=== PATIENT | female | born 1960 | race Caucasian/White ===

== ENCOUNTER 2017-04-22 07:57 | Observation (INO) ==
[2017-04-22] MEDS ORDERED: 0.9 % Sodium Chloride 1,000 ML IVC ONE (09:16)
[2017-04-22] MEDS ORDERED: Ondansetron 4 MG/2 ML VIAL IVP ONE (09:16)
[2017-04-22] MEDS ORDERED: Pantoprazole 40 MG VIAL IVP ONE (09:16)
[2017-04-22] MEDS ORDERED: Ketorolac 15 MG/ML VIAL IVP ONE (09:17)
[2017-04-22 09:31] LABS: Basophils % 0.3 %; Eosinophils # 0.1 K/mcL (0.0-0.6); Eosinophils % 0.9 %; Hematocrit 44.4 % (35.3-44.9); Hemoglobin 14.5 g/dL (11.5-15.4); Immature Granulocytes % 0.3 % (0-4); Lymphocytes # 1.4 K/mcL (0.6-4.6); Lymphocytes % 11.6 %; Mean Corpuscular HGB Conc 32.7 g/dL (31.6-35.5); Mean Corpuscular Hemoglobin 28.7 pg (28.0-33.3); Mean Corpuscular Volume 87.9 fL (83.0-100.0); Mean Platelet Volume 9.5 fL (9.4-12.4); Monocytes # 0.5 K/mcL (0.0-1.3); Monocytes % 4.4 %; Neutrophils # 9.6 K/mcL (1.6-8.9); Platelet Count 286 K/mcL (140-400); Red Blood Count 5.05 M/mcL (3.82-4.97); Red Cell Distribution Width 13.3 % (11.5-14.5); Segmented Neutrophils % 82.5 %
[2017-04-22 09:32] LABS: Bilirubin,Urine Negative (Negative); Blood,Urine Negative (Negative); Clarity,Urine Clear (Clear); Color,Urine Yellow (Yellow); Glucose,Urine (UA) Normal (Normal); Ketones,Urine Negative (Negative); Leukocyte Esterase,Urine Negative (Negative); Nitrite,Urine Negative (Negative); PH,Urine 8.5 pH Units (5.0-8.0); Protein,Urine Negative (Neg-Trace); Specific Gravity,Urine 1.012 (1.010-1.025); Urobilinogen,Urine Normal (Normal)
[2017-04-22 09:40] LABS: Alanine Aminotransferase 11 Units/L (7-52); Albumin 3.7 g/dL (3.5-5.7); Albumin/Globulin Ratio 1.2 (1.1-2.2); Alkaline Phosphatase 68 Units/L (34-104); Aspartate Amino Transferase 12 Units/L (13-39); BUN/Creatinine Ratio 17 (6-26); Bilirubin,Direct 0.1 mg/dL (0.0-0.2); Bilirubin,Indirect 0.5 mg/dL (0.0-1.2); Bilirubin,Total 0.6 mg/dL (0.3-1.0); Blood Urea Nitrogen 11 mg/dL (6-20); Calcium 8.5 mg/dL (8.6-10.3); Carbon Dioxide 22 mEq/L (23-29); Chloride 109 mEq/L (98-107); Glucose 97 mg/dL (70-105); Lipase 20 Units/L (11-82); Osmolality,Calculated 285 (280-300); Potassium 3.5 mEq/L (3.5-5.1); Sodium 138 mEq/L (136-145); Total Protein 6.7 g/dL (6.4-8.9); eGFR For African Americans > 60 (> 60); eGFR For Non-African Americans > 60 (> 60)
--- NOTE | 2017-04-22 12:51 | Emergency Department Note ---
Disposition Clinical Impression: Abdominal pain Qualifiers: Abdominal location: generalized Qualified Code(s): R10.84 - Generalized abdominal pain Acute appendicitis Qualifiers: Acute appendicitis type: unspecified acute appendicitis type Qualified Code(s) : K35.80 - Unspecified acute appendicitis Disposition: Admitted As Inpatient Condition: Good Referrals: Balaji Strickland MD [Primary Care Provider] - Time of Disposition: 13:03 Abdominal Pain HPI - General Chief Complaint: ED Abdominal Pain Stated Complaint: ABD Pain Time Seen by Provider: 04/22/17 08:02 Source: patient Mode of arrival: ambulatory Limitations: no limitations Nursing Notes Reviewed: Yes Vital Signs Reviewed: Yes - History of Present Illness HPI Narrative: Patient presents to emergency room complaining of abdominal pain. Patient said the symptoms on and off for the last 12+ hours. At about intra-abdominal pathology as well as nausea and vomiting. She has chronic fibromyalgia and has not been able to take her bfyl-kaf-yormkum pain medication as well as her prescribed pain medication. Patient denies any chest pain shortness of breath headache vision changes diarrhea at this point. She has had epigastric discomfort and vomiting. Patient denies any fevers or chills. No recent trauma or injuries. She has never had surgery on her abdomen except for C- section Onset (ago): hour(s) Consistency: constant Location: diffuse Pain Severity: mild Pain Scale: 4 Quality: sharp Radiation: epigastric Migration to: no migration Improves with: nothing Worsens with: nothing Associated symptoms: Reports: nausea, vomiting. Denies: fever, chills, constipation Treatments prior to arrival: none - Related Data Home Medications Medication Instructions Recorded Confirmed OxyCODONE/APAP 5/325 [Percocet 1 each PO ONCE 05/13/15 05/13/15 5/325 MG] diazePAM [Valium] 5 mg PO ONCE 05/13/15 05/13/15 Previous Rx's Medication Instructions Recorded Ondansetron ODT [Zofran ODT] 4 mg SL Q6HR PRN #16 tab.rapdis 05/13/15 Ondansetron ODT [Zofran ODT] 4 mg SL Q6HR PRN #15 tab.rapdis 09/02/15 Amoxicillin/Clavulanate [Augmentin] 875 mg PO BIDWM #20 tablet 07/05/16 Allergies Allergy/AdvReac Type Severity Reaction Status Date / Time famotidine [From Pepcid] Allergy Confusion Verified 04/22/17 08:02 ivp dye Allergy Severe Anaphylaxis Uncoded 07/05/16 11:04 All systems ED: reviewed and negative except as stated. Review of Systems: As Per HPI Constitutional: Denies: fever, chills, weakness Cardiovascular: Denies: chest pain, palpitations, dyspnea on exertion Respiratory: Denies: cough, dyspnea, wheezes Gastrointestinal: Reports: abdominal pain, nausea, vomiting. Denies: diarrhea, constipation Genitourinary: Denies: urgency, dysuria, frequency Musculoskeletal: Denies: back pain, neck pain Integumentary: Denies: rash Neurological: Denies: headache Endocrine: Denies: fatigue Abdominal Pain PMH - Past Medical History Medical history: Reports: fibromyalgia Female Surgical History: Reports: other Psychiatric history: Reports: anxiety, panic disorder - Social History Smoking status: Never smoker Alcohol use: Reports: none Drug use: Reports: none Physical Exam - General Limitations: no limitations General appearance: alert, in no apparent distress - Head Head exam: atraumatic, normocephalic, normal inspection - ENT ENT exam: normal exam, normal oropharynx, mucous membranes moist - Neck Neck exam: Present: normal inspection, full ROM, trachea midline - Chest Chest inspection: Present: normal inspection, symmetric chest wall rise - Respiratory Respiratory exam: Present: normal lung sounds bilaterally. Absent: respiratory distress - Cardiovascular Cardiovascular exam: Present: regular rate, normal rhythm, normal heart sounds - Abdominal Exam Abdominal exam: Present: soft, tenderness, normal bowel sounds. Absent: distention, guarding, rebound, rigidity - Extremities Exam Extremities exam: Present: normal inspection, full ROM, normal capillary refill. Absent: tenderness - Back Exam Back exam: Present: normal inspection, full ROM. Absent: tenderness - Neurological Exam Neurological exam: Present: alert, oriented X3, CN II-XII intact, normal gait - Skin Skin exam: Present: warm, dry, intact, normal color Course Course Narrative: Patient seen and examined the time of arrival. See history of present illness. A 6-year-old female presents today with abdominal pain. She also has complaint of nausea and vomiting. She denies any fevers or chills chest pain shortness of breath headache or vision change. No diarrhea. Patient has not been ill and does not have any sick contacts. She does have a history of fibromyalgia. Denies any cardiac or pulmonary related illness. Lungs are clear heart is regular abdomen is soft nontender nondistended. She does not have any point tenderness noted on exam. Subjectively, every time the patient on her abdomen or anywhere across her body the patient does complain of pain. She says this is a chronic issue for her. Abdominal examination does not have any acute findings are concerning for intra-abdominal pathology including pancreatitis, gallbladder disease, appendicitis at this point. CT imaging will be added on secondary to the patient's remote history as well as complaint of uncontrolled nausea and significant pain. Pain medication nausea medication will be given as needed. Screening laboratory workup including CBC chemistry and urinalysis will be established. Patient will have further detailed evaluation. Disposition be determined. Otherwise no other acute issues noted on initial evaluation. Vital signs are stable. - Reevaluation(s) Reevaluation #1: Patient found to have appendicitis based on CT imaging of the abdomen. Consultation placed to the operative physician Dr. andrade. We reviewed the presentation symptoms as well as the abnormal physical exam at this point. He understands and appreciates the concern. Patient was evaluated at the bedside in the emergency room by the surgeon. They are going to take her to the operative suite at this time. The last time that she ate was last night prior to going to bed. She has not had anything by mouth today. Patient is otherwise clinically stable. No other acute concerns or issues noted at this point. Surgical intervention will be established and completed here today. Time: 13:02 Vital Signs Temperature 97.7 F 04/22/17 07:59 Pulse Rate 91 04/22/17 07:59 Respiratory Rate 18 04/22/17 07:59 Blood Pressure 146/103 04/22/17 07:59 O2 Sat by Pulse Oximetry 98 04/22/17 07:59 Temperature 97.7 F 04/22/17 07:59 Pulse Rate 87 04/22/17 10:49 Respiratory Rate 18 04/22/17 07:59 Blood Pressure 131/97 04/22/17 10:49 O2 Sat by Pulse Oximetry 96 04/22/17 10:49 Oxygen Delivery Oxygen Delivery Room Air Abdominal Pain - MDM Narrative Medical decision making narrative: Abdominal pain, appendicitis - Medical Records Medical records reviewed: Yes I reviewed the patient's medical records. - Lab Data Lab results reviewed: Yes I reviewed the patient's lab results. Result diagrams: 04/22/17 08:36 04/22/17 08:36 Lab Results 04/22/17 04/22/17 04/22/17 Range/Units 08:20 08:36 08:36 WBC 11.6 H (4.3-11.1) K/mcL RBC 5.05 H (3.82-4.97) M/mcL Hgb 14.5 (11.5-15.4) g/dL Hct 44.4 (35.3-44.9) % MCV 87.9 (83.0-100.0) fL MCH 28.7 (28.0-33.3) pg MCHC 32.7 (31.6-35.5) g/dL RDW 13.3 (11.5-14.5) % Plt Count 286 (140-400) K/mcL MPV 9.5 (9.4-12.4) fL Immature Gran % 0.3 (0-4) % Seg Neutrophils % 82.5 % Lymphocytes % 11.6 % Monocytes % 4.4 % Eosinophils % 0.9 % Basophils % 0.3 % Neutrophils # 9.6 H (1.6-8.9) K/mcL Lymphocytes # 1.4 (0.6-4.6) K/mcL Monocytes # 0.5 (0.0-1.3) K/mcL Eosinophils # 0.1 (0.0-0.6) K/mcL Basophils # 0.0 (0.0-0.2) K/mcL Sodium 138 (136-145) mEq/L Potassium 3.5 (3.5-5.1) mEq/L Chloride 109 H (98-107) mEq/L Carbon Dioxide 22 L (23-29) mEq/L BUN 11 (6-20) mg/dL Creatinine 0.66 (0.60-1.20) mg/dL Est GFR ( Amer) > 60 (> 60) Est GFR (Non-Af Amer) > 60 (> 60) BUN/Creatinine Ratio 17 (6-26) Glucose 97 (70-105) mg/dL Calculated Osmolality 285 (280-300) Lactic Acid (0.5-2.2) mmol/L Calcium 8.5 L (8.6-10.3) mg/dL Total Bilirubin 0.6 (0.3-1.0) mg/dL Direct Bilirubin 0.1 (0.0-0.2) mg/dL Indirect Bilirubin 0.5 (0.0-1.2) mg/dL AST 12 L (13-39) Units/L ALT 11 (7-52) Units/L Alkaline Phosphatase 68 (34-104) Units/L Troponin I (< 0.04) ng/mL Serum Total Protein 6.7 (6.4-8.9) g/dL Albumin 3.7 (3.5-5.7) g/dL Globulin 3.0 (2.4-3.5) g/dL Albumin/Globulin Ratio 1.2 (1.1-2.2) Lipase 20 (11-82) Units/L Urine Color Yellow (Yellow) Urine Clarity Clear (Clear) Urine pH 8.5 H (5.0-8.0) pH Units Ur Specific [place] 1.012 (1.010-1.025) Urine Protein Negative (Neg-Trace) mg/dL Urine Glucose (UA) Normal (Normal) mg/dL Urine Ketones Negative (Negative) mg/dL Urine Blood Negative (Negative) Urine Nitrite Negative (Negative) Urine Bilirubin Negative (Negative) Urine Urobilinogen Normal (Normal) mg/dL Ur Leukocyte Esterase Negative (Negative) Ur Culture Indicated? NO (NO) 04/22/17 04/22/17 Range/Units 08:36 10:32 WBC (4.3-11.1) K/mcL RBC (3.82-4.97) M/mcL Hgb (11.5-15.4) g/dL Hct (35.3-44.9) % MCV (83.0-100.0) fL MCH (28.0-33.3) pg MCHC (31.6-35.5) g/dL RDW (11.5-14.5) % Plt Count (140-400) K/mcL MPV (9.4-12.4) fL Immature Gran % (0-4) % Seg Neutrophils % % Lymphocytes % % Monocytes % % Eosinophils % % Basophils % % Neutrophils # (1.6-8.9) K/mcL Lymphocytes # (0.6-4.6) K/mcL Monocytes # (0.0-1.3) K/mcL Eosinophils # (0.0-0.6) K/mcL Basophils # (0.0-0.2) K/mcL Sodium (136-145) mEq/L Potassium (3.5-5.1) mEq/L Chloride (98-107) mEq/L Carbon Dioxide (23-29) mEq/L BUN (6-20) mg/dL Creatinine (0.60-1.20) mg/dL Est GFR ( Amer) (> 60) Est GFR (Non-Af Amer) (> 60) BUN/Creatinine Ratio (6-26) Glucose (70-105) mg/dL Calculated Osmolality (280-300) Lactic Acid 0.8 (0.5-2.2) mmol/L Calcium (8.6-10.3) mg/dL Total Bilirubin (0.3-1.0) mg/dL Direct Bilirubin (0.0-0.2) mg/dL Indirect Bilirubin (0.0-1.2) mg/dL AST (13-39) Units/L ALT (7-52) Units/L Alkaline Phosphatase (34-104) Units/L Troponin I < 0.03 (< 0.04) ng/mL Serum Total Protein (6.4-8.9) g/dL Albumin (3.5-5.7) g/dL Globulin (2.4-3.5) g/dL Albumin/Globulin Ratio (1.1-2.2) Lipase (11-82) Units/L Urine Color (Yellow) Urine Clarity (Clear) Urine pH (5.0-8.0) pH Units Ur Specific [place] (1.010-1.025) Urine Protein (Neg-Trace) mg/dL Urine Glucose (UA) (Normal) mg/dL Urine Ketones (Negative) mg/dL Urine Blood (Negative) Urine Nitrite (Negative) Urine Bilirubin (Negative) Urine Urobilinogen (Normal) mg/dL Ur Leukocyte Esterase (Negative) Ur Culture Indicated? (NO) - Radiology Data Radiology results reviewed: Yes I reviewed the patient's radiology results. CT imaging of the abdomen is positive for acute appendicitis. Otherwise no other acute remarkable issues
[2017-04-22] MEDS ORDERED: *HR* Propofol 200 MG/20 ML VIAL IVP ONE (12:57)
[2017-04-22] MEDS ORDERED: *HR* Midazolam HCl 2 MG/2 ML VIAL ONE (12:57)
[2017-04-22] MEDS ORDERED: *HR* FentaNYL (PF) 100 MCG/2 ML VIAL ONE (12:57)
--- NOTE | 2017-04-22 12:57 | General Surg History&Physical ---
Date of Encounter: 04/22/17 Time of Encounter: 12:30 History of Present Illness Chief complaint: Acute appendicitis HPI: Ms. Herbert is a 56 year old female With a several day history of abdominal pain. This morning the pain was much more severe, central, and generalized. She denies nausea or vomiting. She denies episodes of diarrhea. She does have intermittent episodic constipation related to chronic narcotic use. She sought evaluation in the emergency room due to the severity of pain. CAT scan demonstrates acute appendicitis. I personally reviewed the CAT scan films. Findings are consistent with acute appendicitis. The patient does not have localized abdominal pain. The patient does not have pain with motion. Past Med Surg Social Fam HX - Past Medical History Medical history: fibromyalgia Psychiatric history: anxiety, panic disorder - Past Surgical History Surgical History: other (right lung lobectomy 2013) - Social History Smoking Status: Never smoker Smokeless Tobacco Status: No Alcohol use: none Drug use: none Medications and Allergies Oxycodone HCl/Acetaminophen [Percocet 10-325 mg Tablet] 1 tab PO QID 04/22/17 [ History] 3 Allergy/AdvReac Type Severity Reaction Status Date / Time famotidine [From Pepcid] Allergy Confusion Verified 04/22/17 08:02 ivp dye Allergy Severe Anaphylaxis Uncoded 07/05/16 11:04 Review of Systems All systems PM: A 10-system review of systems was performed and is negative for pertinent findings except as documented above in the HPI. General Surgery Exam Initial Vital Signs Temp Pulse Resp BP Pulse Ox 97.7 F 91 18 146/103 98 04/22/17 07:59 04/22/17 07:59 04/22/17 07:59 04/22/17 07:59 04/22/17 07:59 - General physical appearance well developed, well nourished, no distress - Respiratory normal expansion, normal respiratory effort, clear to percussion, clear to auscultation - Cardiovascular Cardiovascular exam: Present: RRR, no murmurs/rubs/gallops - Abdomen Abdomen general surgery: Present: tender Abdominal Tenderness: Present: diffusely Hernia: Present: none - Neurologic Present: CN 2-12 grossly intact, normal coordination, normal sensation - Psychiatric Psychiatric general surgery: Present: appropriate, oriented to person, oriented to place, oriented to time, speech is normal, memory intact Results - Labs 04/22/17 08:36 04/22/17 08:36 Abnormal lab results WBC 11.6 K/mcL (4.3-11.1) H 04/22/17 08:36 RBC 5.05 M/mcL (3.82-4.97) H 04/22/17 08:36 Neutrophils # 9.6 K/mcL (1.6-8.9) H 04/22/17 08:36 Chloride 109 mEq/L (98-107) H 04/22/17 08:36 Carbon Dioxide 22 mEq/L (23-29) L 04/22/17 08:36 Calcium 8.5 mg/dL (8.6-10.3) L 04/22/17 08:36 AST 12 Units/L (13-39) L 04/22/17 08:36 Urine pH 8.5 pH Units (5.0-8.0) H 04/22/17 08:20 Diabetes panel 04/22/17 Range/Units 08:36 Sodium 138 (136-145) mEq/L Potassium 3.5 (3.5-5.1) mEq/L Chloride 109 H (98-107) mEq/L Carbon Dioxide 22 L (23-29) mEq/L BUN 11 (6-20) mg/dL Creatinine 0.66 (0.60-1.20) mg/dL Glucose 97 (70-105) mg/dL Calcium 8.5 L (8.6-10.3) mg/dL AST 12 L (13-39) Units/L ALT 11 (7-52) Units/L Alkaline Phosphatase 68 (34-104) Units/L Albumin 3.7 (3.5-5.7) g/dL Calcium panel 04/22/17 Range/Units 08:36 Calcium 8.5 L (8.6-10.3) mg/dL Albumin 3.7 (3.5-5.7) g/dL Pituitary panel 04/22/17 Range/Units 08:36 Sodium 138 (136-145) mEq/L Potassium 3.5 (3.5-5.1) mEq/L Chloride 109 H (98-107) mEq/L Carbon Dioxide 22 L (23-29) mEq/L BUN 11 (6-20) mg/dL Creatinine 0.66 (0.60-1.20) mg/dL Glucose 97 (70-105) mg/dL Calcium 8.5 L (8.6-10.3) mg/dL Adrenal panel 04/22/17 Range/Units 08:36 Sodium 138 (136-145) mEq/L Potassium 3.5 (3.5-5.1) mEq/L Chloride 109 H (98-107) mEq/L Carbon Dioxide 22 L (23-29) mEq/L BUN 11 (6-20) mg/dL Creatinine 0.66 (0.60-1.20) mg/dL Glucose 97 (70-105) mg/dL Calcium 8.5 L (8.6-10.3) mg/dL Total Bilirubin 0.6 (0.3-1.0) mg/dL AST 12 L (13-39) Units/L ALT 11 (7-52) Units/L Alkaline Phosphatase 68 (34-104) Units/L Albumin 3.7 (3.5-5.7) g/dL All other labs normal. - Imaging CT scan - abdomen: image reviewed (I personally reviewed the CAT scan of the abdomen. Findings are consistent with acute appendicitis.)
[2017-04-22] MEDS ORDERED: CefOXitin 1,000 MG VIAL ONE (12:59)
[2017-04-22] MEDS ORDERED: *HR* Succinylcholine 200 MG/10 ML VIAL IVP ONE (13:00)
[2017-04-22] MEDS ORDERED: *HR* Rocuronium Bromide 50 MG/5 ML VIAL ONE (13:00)
[2017-04-22] MEDS ORDERED: Ondansetron 4 MG/2 ML VIAL ONE (13:00)
[2017-04-22] MEDS ORDERED: Dexamethasone 4 MG/ML VIAL ONE (13:00)
[2017-04-22] MEDS ORDERED: Lidocaine -MPF 2% 2 ML VIAL ONE (13:00)
--- NOTE | 2017-04-22 13:18 | Anesthesia Evaluation PreOp ---
Date of Encounter: 04/22/17 Time of Encounter: 13:12 - Past History Planned Operation: lap appy Cardiac History: Denies any Significant Hx Pulmonary History: Denies Any Significant HX RESIDENT INTERN History: Denies Any Significant HX Other Medical History: Other (fibromyalgia and panic disorder) Anesthesia History: No Prior Anesthetic Complications, Past Anesthesia ( thoracotomy/mediastinoscopy - no cancer) Alcohol Use: none Drug use: none Medications and Allergies Oxycodone HCl/Acetaminophen [Percocet 10-325 mg Tablet] 1 tab PO QID 04/22/17 [ History] 3 Allergy/AdvReac Type Severity Reaction Status Date / Time famotidine [From Pepcid] Allergy Confusion Verified 04/22/17 08:02 ivp dye Allergy Severe Anaphylaxis Uncoded 07/05/16 11:04 - Meds/Allergy Pre-op Review Medications Reviewed: Yes Allergies Reviewed: Yes Beta Blockers on Current Med List: No Anesthesia Results - Labs 04/22/17 08:36 04/22/17 08:36 Anesthesia Exam Selected Entries 04/22/17 12:54 Pulse Rate 97 Respiratory Rate 15 Blood Pressure 137/99 O2 Sat by Pulse Oximetry 97 Weight: 75kg NPO (# of Hours): 8 - HEENT Pupil (Motor): EOMI Mallampati: II Teeth: Poor dentition Oral Opening: Greater than 3 - RESIDENT INTERN LOC: Oriented RESIDENT INTERN Motor: Normal RUE, Normal LUE, Normal RLE, Normal LLE, Normal Face RESIDENT INTERN Sensory: Normal: RUE, LUE, RLE, LLE, Face - Cardiac Rhythm: Regular Murmur: None - Pulmonary Breath Sounds: bilateral Clear Respiratory Effort: Symmetrical Anesthesia Assess/Plan ASA Score: 2 Modified [place] Scale for Level of Consciousness: Cooperative, oriented, and tranquil Anesthetic Plan: General Monitoring Plan: Standard Monitors Recovery Plan: PACU (agrees to GA)
[2017-04-22] MEDS ORDERED: *HR* Labetalol 20 MG/4 ML SYRINGE IVP PRN (14:07)
[2017-04-22] MEDS ORDERED: *HR* OxyCODONE Immed Rel 5 MG TABLET PO PRN (14:07)
[2017-04-22] MEDS ORDERED: CeFAZolin Syringe 2,000MG/20 ML SYR IVPB ONE ×2 (14:09→15:57)
[2017-04-22] MEDS ORDERED: Neostigmine Methylsulfate 3 MG/3 ML SYRINGE ONE (14:27)
--- NOTE | 2017-04-22 14:44 | Operative Note ---
Date of procedure: 04/22/17 Pre-op diagnosis: Acute appendicitis Post-op diagnosis: same Procedure: Laparoscopic appendectomy Anesthesia: JAMISON Surgeon: Yaya Guardado Was there an data entry assistant present: No Estimated blood loss (cc): 25 Specimen: appendix Condition: stable Disposition: PACU Procedure in Detail: After informed consent patient was taken to the major operative suite placed in supine position and given adequate general anesthetic. Abdomen is prepped and draped in sterile fashion utilizing ChloraPrep standard draping techniques. Timeout was taken. I made a vertical midline incision below the umbilicus and dissected down to level of fascia. 2 traction stitches were placed. The abdomen was entered visually. I placed a Mcgovern trocar. I placed a 5 mm port and a 12 mm port. The 5 mm ports in the suprapubic area 12 mm port right upper quadrant. The appendix was visualized and acute inflamed. The tip was necrotic and retrocecal. I mobilized the lateral peritoneal attachments to the cecum and appendix. The base the appendix was divided with a gastrointestinal load. I divided the mesial appendix with a vascular load. This allowed me to fully mobilize the tip of the appendix which was necrotic. There was no spillage of stool and there was no possible. The tip the appendix was removed from the periappendiceal tissues in the retrocecal area. Both the tip of the appendix and the main body of the appendix were recovered in the specimen bag. Both specimens were removed through the umbilical port site. I replaced the umbilical port and irrigated with copious amounts of antibiotic containing solution. There is no evidence of bleeding. It was noted that there was an arterial bleeding area at the staple line. This was controlled to 10 mm clips. There was no bleeding after this maneuver. All staple lines were intact. All trochars removed. Fascia was closed with 0 Vicryl. Skin was closed with 4- 0 Vicryl.
[2017-04-22] MEDS ORDERED: *HR* Metoprolol 5 MG/5 ML VIAL IVP PRN ×2 (14:45→15:57)
[2017-04-22] MEDS ORDERED: *HR* OxyCODONE/APAP 5/325 TABLET PO PRN (14:45)
[2017-04-22] MEDS ORDERED: 0.9 % Sodium Chloride 1,000 ML IVC SCH (14:45)
[2017-04-22] MEDS ORDERED: Ondansetron 4 MG/2 ML VIAL IVP PRN ×3 (14:45→18:46)
[2017-04-22] MEDS ORDERED: OXYCODONE Oral CONC 10 MG/0.5 ML ORAL.SYG SL PRN ×2 (14:45→15:57)
[2017-04-22] MEDS: MORPHINE SUL Oral CONC 10 MG/0.5 ML ORAL.SYG SL PRN ×2 (14:56→15:27)
[2017-04-22] MEDS: *HR* Promethazine 25 MG/ML VIAL IVP PRN ×2 (15:03→15:09)
[2017-04-22] MEDS ORDERED: *HR* Meperidine 25 MG/ML SYRINGE IVP PRN (15:14)
[2017-04-22] MEDS ORDERED: *HR* Meperidine 25 MG/ML SYRINGE ONE (15:15)
[2017-04-22] MEDS ORDERED: Acetaminophen IV 1,000 MG/100 ML INFUS..BTL ONE (15:56)
[2017-04-22] MEDS ORDERED: CeFAZolin Premix DUPLEX 2,000 MG/50 ML BAG IVPB SCH (16:00)
--- NOTE | 2017-04-22 16:26 | Discharge Summary ---
<Jennifer Enamorado Markell - Last Filed: 04/22/17 16:23> Date of Encounter: 04/22/17 Time of Encounter: 16:24 - Discharge Diagnosis (1) Acute appendicitis Priority: Primary Status: Resolved Qualifiers: Acute appendicitis type: unspecified acute appendicitis type Qualified Code (s): K35.80 - Unspecified acute appendicitis - Discharge Medications Prescriptions: Ibuprofen 800 mg PO Q8H #42 tablet Polyethylene Glycol 3350 [MiraLAX] 17 gm PO DAILY #30 powd.pack Home Medications: Ibuprofen 800 mg PO Q8H #42 tablet 04/22/17 [Rx] Oxycodone HCl/Acetaminophen [Percocet 10-325 mg Tablet] 1 tab PO QID 04/22/17 [ History] Polyethylene Glycol 3350 [MiraLAX] 17 gm PO DAILY #30 powd.pack 04/22/17 [Rx] Allergies/Adverse Reactions: 3 Allergy/AdvReac Type Severity Reaction Status Date / Time famotidine [From Pepcid] Allergy Confusion Verified 04/22/17 08:02 ivp dye Allergy Severe Anaphylaxis Uncoded 07/05/16 11:04 General Surgery Exam Initial Vital Signs Temp Pulse Resp BP Pulse Ox 97.7 F 91 18 146/103 98 04/22/17 07:59 04/22/17 07:59 04/22/17 07:59 04/22/17 07:59 04/22/17 07:59 Date of admission: 04/22/17 13:16 Primary care physician: Balaji Strickland MD Discharging clinician: Yaya Guardado Anticipated date of discharge: 04/23/17 - Patient Status Disposition: Home, Self-Care Condition: Good Functional capacity at discharge: independent ambulation Overall status at discharge: patient is progressing back to baseline - Discharge Instructions Instructions: Polyethylene Glycol 3350 (By mouth), Laparoscopic Appendectomy ( DC) Follow Up With: Balaji Strickland MD [Primary Care Provider] - 04/28/17 1:15 pm Rosita Vallecillo CNP [Advanced Practice Nurse] - 05/22/17 10:15 am Additional Instructions: General Surgical Discharge Instructions 1. No pushing, pulling, or lifting greater than 15 lbs for 2-4 weeks (depending upon procedure). 2. You may shower beginning today, but no tub baths, soaking, or swimming for 2 weeks. 3. You may resume driving when you are off narcotics and are safe to react in a car. 4. Take ibuprofen every 8 hours for discomfort. If this does not relieve discomfort, you may take the as needed Percocet. Take narcotics as directed. Do not take more narcotics then directed and do not share your narcotics with any other person. Do not drink alcohol while on narcotics. 5. Take stool softeners (Colace) or a water based laxative (Miralax) while taking narcotics. You may hold for loose stools. 6. Report any fevers greater than 100.5F, increase abdominal discomfort, drainage that looks like pus, increased redness or pain at the surgical site, or any vomiting. 7. Report any pain in the calves, shortness of breath, or rapid heartbeat. 8. Follow-up in the office as directed. 9. If you were prescribed antibiotics, do not stop them without talking to your provider. - Diet and Activity Activity: increase activity as tolerated Diet: advance to your usual diet - Hospital Course Hospital course: Ms. Herbert is a 56 year old female who presented on 04/22/2017 for RLQ pain. Her exam and imaging was consistent with acute appendicitis. She was taken to the operating room where she underwent an uncomplicated appendectomy. She is ambulating avoiding without difficulty, tolerating a diet without nausea or vomiting, vital signs are stable, and she is afebrile. We will begin discharge planning to home with a follow-up office in approximately 2 weeks. No narcotic prescription was given due to patient had just filled 120 oxycodone/ acetaminophen 10/325 mg on 04/13/2017. She is provided prescriptions for ibuprofen, MiraLAX, (transmitted electronically). - Time Spent with Patient Total time spent providing and/or coordinating discharge services: <Monica Wang - Last Filed: 04/23/17 08:41> Date of Encounter: 04/23/17 - Discharge Diagnosis (1) Acute appendicitis Priority: Primary Status: Resolved Qualifiers: Acute appendicitis type: unspecified acute appendicitis type Qualified Code (s): K35.80 - Unspecified acute appendicitis General Surgery Exam Initial Vital Signs Temp Pulse Resp BP Pulse Ox 97.7 F 91 18 146/103 98 04/22/17 07:59 04/22/17 07:59 04/22/17 07:59 04/22/17 07:59 04/22/17 07:59 - General physical appearance well developed, well nourished, no distress - Cardiovascular Cardiovascular exam: Present: RRR, no murmurs/rubs/gallops - Abdomen Abdomen general surgery: Present: bowel sounds present, soft, tender (localized tenderness to RLQ, no guarding or rigidity. ) Hernia: Present: none - Incision Incision: Present: clean and dry, intact - Neurologic Present: CN 2-12 grossly intact, normal coordination, normal sensation - Psychiatric Psychiatric general surgery: Present: A&Ox3 Date of admission: 04/22/17 13:16 Primary care physician: Balaji Strickland MD - Patient Status Functional capacity at discharge: independent ambulation Overall status at discharge: patient is progressing back to baseline - Diet and Activity Activity: increase activity as tolerated Diet: advance to your usual diet - Hospital Course Hospital course: This morning, Patient was resting comfortably. She was passing gas, tolerating a diet, and ambulating. She denied nausea or vomitting, and her pain was well controlled. She felt comfortable with the plan for discharge today. All questions and concerns were addressed. - Time Spent with Patient Total time spent providing and/or coordinating discharge services: Less than 30 minutes Labs on day of discharge: Labs from last 24 hours 04/23/17 04/23/17 07:02 07:02 WBC 13.4 H RBC 4.03 Hgb 11.7 D Hct 35.6 MCV 88.3 MCH 29.0 MCHC 32.9 RDW 13.7 Plt Count 225 MPV 9.4 Immature Gran % 0.5 Seg Neutrophils % 82.7 Lymphocytes % 9.1 Monocytes % 7.6 Eosinophils % 0.0 Basophils % 0.1 Neutrophils # 11.1 H Lymphocytes # 1.2 Monocytes # 1.0 Eosinophils # 0.0 Basophils # 0.0 Sodium 138 Potassium 3.7 Chloride 108 H Carbon Dioxide 25 BUN 10 Creatinine 0.64 Est GFR ( Amer) > 60 Est GFR (Non-Af Amer) > 60 BUN/Creatinine Ratio 16 Glucose 129 H Calculated Osmolality 287 Calcium 8.8 <Yaya Guardado T - Last Filed: 04/25/17 08:36> Date of Encounter: 04/23/17 General Surgery Exam Initial Vital Signs Temp Pulse Resp BP Pulse Ox 97.7 F 91 18 146/103 98 04/22/17 07:59 04/22/17 07:59 04/22/17 07:59 04/22/17 07:59 04/22/17 07:59 Date of admission: 04/22/17 13:16 Primary care physician: Balaji Strickland MD - Hospital Course Hospital course: Ms. Herbert is a 56 year old female - Time Spent with Patient Total time spent providing and/or coordinating discharge services: - Attending Attestation I have personally performed a face to face evaluation on this patient. I have reviewed and agree with the care plan. History and Exam by me shows: The patient was seen and evaluated her morning rounds. She has had resolution of her symptoms from laparoscopic appendectomy and acute appendicitis. She will be discharged home. I will see her in 1 week follow-up Yaya Guardado MD FACS
[2017-04-22] MEDS: 0.9 % Sodium Chloride 1,000 ML IVC SCH (18:24)
[2017-04-22] MEDS: CeFAZolin Premix DUPLEX 2,000 MG/50 ML BAG IVPB SCH ×2 (18:24→23:49)
[2017-04-22] MEDS: *HR* OxyCODONE/APAP 5/325 TABLET PO PRN ×2 (18:24→23:51)
[2017-04-22] MEDS ORDERED: Simethicone 80 MG TAB.CHEW PO PRN (18:43)
[2017-04-22] MEDS ORDERED: *HR* Promethazine 25 MG/ML VIAL IVP PRN (18:43)
[2017-04-22] MEDS ORDERED: Ondansetron 4 MG/2 ML VIAL IVP SCH (20:00)
[2017-04-23] MEDS: *HR* OxyCODONE/APAP 5/325 TABLET PO PRN (06:18)
[2017-04-23 07:10] LABS: Basophils % 0.1 %; Hematocrit 35.6 % (35.3-44.9); Immature Granulocytes % 0.5 % (0-4); Lymphocytes # 1.2 K/mcL (0.6-4.6); Lymphocytes % 9.1 %; Mean Corpuscular HGB Conc 32.9 g/dL (31.6-35.5); Mean Corpuscular Volume 88.3 fL (83.0-100.0); Mean Platelet Volume 9.4 fL (9.4-12.4); Monocytes % 7.6 %; Neutrophils # 11.1 K/mcL (1.6-8.9); Platelet Count 225 K/mcL (140-400); Red Blood Count 4.03 M/mcL (3.82-4.97); Red Cell Distribution Width 13.7 % (11.5-14.5); Segmented Neutrophils % 82.7 %
[2017-04-23 07:22] LABS: Hemoglobin 11.7 g/dL (11.5-15.4)
[2017-04-23 07:25] VITALS: BP 108/69
[2017-04-23] MEDS: 0.9 % Sodium Chloride 1,000 ML IVC SCH (07:35)
[2017-04-23 07:58] LABS: BUN/Creatinine Ratio 16 (6-26); Blood Urea Nitrogen 10 mg/dL (6-20); Calcium 8.8 mg/dL (8.6-10.3); Carbon Dioxide 25 mEq/L (23-29); Chloride 108 mEq/L (98-107); Glucose 129 mg/dL (70-105); Osmolality,Calculated 287 (280-300); Potassium 3.7 mEq/L (3.5-5.1); Sodium 138 mEq/L (136-145); eGFR For African Americans > 60 (> 60); eGFR For Non-African Americans > 60 (> 60)
== END 2017-04-23 12:37 | disposition home or self-care (01) ==
LOC: EMEROO 07:57 → 3BNU 07:57
PROVIDERS: ADMIT Surgery; ATTEND Surgery